=== PATIENT | female | born 1935 | race Caucasian/White ===

== ENCOUNTER → 2019-07-26 | Outpatient (CLI) | payer OTHER, MEDICARE ==
[~2019-07-26] MED LIST: ACETAMINOPHEN-1 EAC1 PO; ASPIRIN81 M2 PO; BACTROBAN22 GM NASAL; CALICUM 500+D1 EACH PO; CLARITIN10 MG PO; CLONAZEPAM 0.50.5 M1 PO; CLONIDINE0.1 PO; COLACE100 MG PO; FISH OIL 1,001000 M2 PO; KLOR-CON 1010 MEQ PO; LEVAQUIN 500 M500 M2 PO; LEVOTHYROXIN0.025 MG PO; LOSARTAN POTAS100 MG PO; MAGOX 400400 MG PO; METAMUCIL PAC1 UDPKT PO; MICROZIDE12.5 MG PO; NORVASC5 M1 PO; OSELB75 PO; SYMBICORT160 MCG/4. INH; TOPROL XL50 MG PO; TYLENOL325 MG PO; UNICOMPLEX M TA1 TA1 PO; VENTOLIN HFA INH8 GM INH; VITAMIN D3400 UNIT PO; VITAMINC500 PO
== END ==
LOC: SJCVC 09:13
DX: R94.31 Abnormal electrocardiogram [ECG] [EKG] (principal); I48.0 Paroxysmal atrial fibrillation; I50.32 Chronic diastolic (congestive) heart failure; I11.0 Hypertensive heart disease with heart failure; E78.5 Hyperlipidemia, unspecified; J44.9 Chronic obstructive pulmonary disease, unspecified; Z95.0 Presence of cardiac pacemaker; Z79.01 Long term (current) use of anticoagulants; Z90.49 Acquired absence of other specified parts of digestive tract; Z90.710 Acquired absence of both cervix and uterus; Z79.899 Other long term (current) drug therapy

== ENCOUNTER → 2019-12-27 | Outpatient (CLI) | payer OTHER, MEDICARE | LOC: SJCVCIMAG 10-10 10:14 | PROVIDERS: ATTEND Internal Medicine | DX: Z45.018 Encounter for adjustment and management of other part of cardiac pacemaker (principal); I08.3 Combined rheumatic disorders of mitral, aortic and tricuspid valves; I27.20 Pulmonary hypertension, unspecified; R94.31 Abnormal electrocardiogram [ECG] [EKG]; I48.0 Paroxysmal atrial fibrillation; I11.0 Hypertensive heart disease with heart failure; I50.32 Chronic diastolic (congestive) heart failure; E78.5 Hyperlipidemia, unspecified; Z79.01 Long term (current) use of anticoagulants; Z79.899 Other long term (current) drug therapy ==

== ENCOUNTER → 2020-11-28 | Outpatient (CLI) | payer OTHER, MEDICARE | LOC: SJCVC 16:55 | PROVIDERS: ATTEND Internal Medicine | DX: I48.0 Paroxysmal atrial fibrillation (principal); R94.31 Abnormal electrocardiogram [ECG] [EKG]; I11.0 Hypertensive heart disease with heart failure; I50.32 Chronic diastolic (congestive) heart failure; E78.5 Hyperlipidemia, unspecified; J44.9 Chronic obstructive pulmonary disease, unspecified; I49.5 Sick sinus syndrome; Z90.49 Acquired absence of other specified parts of digestive tract; Z90.710 Acquired absence of both cervix and uterus; Z95.0 Presence of cardiac pacemaker; Z88.2 Allergy status to sulfonamides; Z88.8 Allergy status to other drugs, medicaments and biological substances; Z79.01 Long term (current) use of anticoagulants; Z79.899 Other long term (current) drug therapy ==